=== PATIENT | female | born 1990 | race Caucasian/White ===

== ENCOUNTER 2018-01-08 22:55 | Emergency (ER) | payer OTHER ==
[~2018-01-08] VITALS: Ht 177.8 cm; Wt 63.9 kg
[~2018-01-08 22:55] MED LIST: DEPAKOTE500 MG PO; LAMICTAL100 MG PO; NAPROSYN500 MG PO; NORCO 5/3251 TABLET PO; TOPAMAX50 MG PO
[2018-01-08 23:13] LABS: HEMATOCRIT 40.2 % (36.0-46.0); HEMOGLOBIN 14.1 G/DL (11.9-15.5); MCH 32.6 PG (29.0-34.0); MCHC 35.1 G/DL (30.0-36.0); MCV 92.8 FL (83-99); NRBC (%) 0.2 /100 WBC (0-0); PLATELET COUNT 236 K/uL (156-360); RBC DIS.WIDTH-CV 13.2 % (11.8-14.6); RBC DIS.WIDTH-SD 44.8 % (39-53); RED BLOOD COUNT 4.33 M/uL (3.80-5.20)
[2018-01-08 23:19] LABS: APPEARANCE CLOUDY ((CLEAR)); BILIRUBIN NEGATIVE; BLOOD LARGE; GLUCOSE (STRIP) NEGATIVE; KETONES NEGATIVE; LEUKOCYTES LARGE; NITRITE NEGATIVE; PROTEIN (STRIP) 100; SPECIFIC GRAVITY 1.017 (1.000-1.030)
[2018-01-08 23:21] LABS: ALBUMIN 4.5 g/dL (3.2-4.8)
[2018-01-08 23:22] LABS: CHLORIDE 105 mEq/L (99-109); POTASSIUM 4.6 mEq/L (3.7-5.4); SODIUM 141 mEq/L (136-147)
[2018-01-08 23:24] LABS: GLUCOSE 99 mg/dL (70-99); TOTAL PROTEIN 7.8 g/dL (6.4-8.3)
[2018-01-08 23:26] LABS: COLOR LT.RED ((YELLOW))
[2018-01-08 23:26] LABS: TOTAL BILIRUBIN 0.8 mg/dL (0.0-1.0)
[2018-01-08 23:27] LABS: ALKALINE PHOSPHATASE 97 IU/L (3-129)
[2018-01-08 23:28] LABS: CREATININE 0.9 mg/dL (0.6-1.3); GFR ESTIMATE (CALCULATED) > 59 mL/min/
[2018-01-08 23:29] LABS: AST (GOT) 61 IU/L (2-34); UREA NITROGEN (BUN) 11 mg/dL (9-23)
[2018-01-08 23:30] LABS: ALT (GPT) 44 IU/L (3-49)
[2018-01-08 23:36] LABS: RED BLOOD CELLS TNTC /HPF (0-5); UCUL ADDED? YES; WHITE BLOOD CELLS TNTC /HPF (0-5)
[2018-01-08 23:37] LABS: QUANTITATIVE HCG < 4.0 MIU/ML
[2018-01-08] MEDS ORDERED: PYRIDIUM200 MG PO (23:58)
[2018-01-08] MEDS ORDERED: KEFLEX500 MG PO (23:58)
[2018-01-08] MEDS ORDERED: MOTRIN600 MG PO (23:59)
[2018-01-09 00:29] VITALS: BP 118/85
== END 2018-01-09 00:39 | disposition home or self-care (01) ==
LOC: EME 22:55
DX: N39.0 Urinary tract infection, site not specified (principal); Z87.440 Personal history of urinary (tract) infections; F17.200 Nicotine dependence, unspecified, uncomplicated
CPT/HCPCS: 80053; 81003; 84702; 85027; 87077; 87086; 87186; 99281; 99284

== ENCOUNTER 2018-01-18 19:05 | Emergency (ER) | payer OTHER ==
[~2018-01-18] VITALS: Ht 177.8 cm; Wt 63.9 kg
[~2018-01-18 19:05] MED LIST changes: +KEFLEX500 MG PO; +MOTRIN600 MG PO; +PYRIDIUM200 MG PO
[2018-01-18 20:53] LABS: HEMATOCRIT 40.9 % (36.0-46.0); HEMOGLOBIN 14.2 G/DL (11.9-15.5); MCH 32.4 PG (29.0-34.0); MCHC 34.7 G/DL (30.0-36.0); MCV 93.4 FL (83-99); PLATELET COUNT 225 K/uL (156-360); RBC DIS.WIDTH-CV 12.8 % (11.8-14.6); RBC DIS.WIDTH-SD 44.3 % (39-53); RED BLOOD COUNT 4.38 M/uL (3.80-5.20); WHITE BLOOD COUNT 8.9 K/uL (4.1-10.2)
[2018-01-18 21:05] LABS: ALBUMIN 4.6 g/dL (3.2-4.8); CHLORIDE 102 mEq/L (99-109); POTASSIUM 4.9 mEq/L (3.7-5.4)
[2018-01-18 21:06] LABS: SODIUM 137 mEq/L (136-147)
[2018-01-18 21:08] LABS: GLUCOSE 106 mg/dL (70-99); TOTAL PROTEIN 8.6 g/dL (6.4-8.3)
[2018-01-18 21:10] LABS: TOTAL BILIRUBIN 0.3 mg/dL (0.0-1.0)
[2018-01-18 21:11] LABS: ALKALINE PHOSPHATASE 87 IU/L (3-129); CREATININE 0.9 mg/dL (0.6-1.3); GFR ESTIMATE (CALCULATED) > 59 mL/min/
[2018-01-18 21:13] LABS: AST (GOT) 38 IU/L (2-34); UREA NITROGEN (BUN) 10 mg/dL (9-23)
[2018-01-18 21:14] LABS: ALT (GPT) 34 IU/L (3-49); CREATINE KINASE 145 IU/L (1-294)
[2018-01-18 21:22] LABS: QUANTITATIVE HCG < 4.0 MIU/ML
[2018-01-18 23:41] LABS: APPEARANCE CLOUDY ((CLEAR)); BILIRUBIN NEGATIVE; BLOOD NEGATIVE; COLOR YELLOW ((YELLOW)); GLUCOSE (STRIP) NEGATIVE; KETONES NEGATIVE; LEUKOCYTES NEGATIVE; NITRITE NEGATIVE; PROTEIN (STRIP) NEGATIVE; SPECIFIC GRAVITY 1.019 (1.000-1.030)
[2018-01-18 23:52] LABS: BACTERIA RARE /HPF; CALCIUM OXALATE CRYSTALS 2+ /HPF; EPITHELIAL CELLS RARE /HPF; MUCUS TRACE /LPF; RED BLOOD CELLS 0-5 /HPF (0-5); UCUL ADDED? NO; WHITE BLOOD CELLS 0-5 /HPF (0-5)
[2018-01-19] MEDS ORDERED: DEPAKOTE250 MG PO (01:47)
[2018-01-19 03:10] VITALS: BP 109/66
== END 2018-01-19 03:12 | disposition home or self-care (01) ==
LOC: EME 19:05
PROVIDERS: Physician Assistant
DX: H53.2 Diplopia (principal); R42 Dizziness and giddiness; M79.1 Myalgia; T42.6X5A Adverse effect of other antiepileptic and sedative-hypnotic drugs, initial encounter; R56.9 Unspecified convulsions; F17.200 Nicotine dependence, unspecified, uncomplicated
CPT/HCPCS: 80053; 80164; 80175 90; 81003; 82550; 84702; 85027; 99281; 99285; J7030